=== PATIENT | male | born 1990 | race Caucasian/White ===

== ENCOUNTER 2018-11-13 18:31 | Emergency (ER) | payer OTHER ==
[2018-11-13 18:43] VITALS: BP 127/87; PULSE 99; TEMP 99.8; BMI 26.1
[2018-11-13] MEDS ORDERED: KETOROLAC TROMETHAMINE 60 MG/2 ML VIAL IM ONE (18:59)
[2018-11-13] MEDS ORDERED: DEXAMETHASONE LIQUID 0.5 MG/5 ML 240 ML BULK BOTTLE PO ONE (18:59)
--- NOTE | 2018-11-13 19:04 | PDOC ---
History of Present Illness - General Chief Complaint: Sore Throat Stated Complaint: THROAT PAIN Time Seen by Provider: 11/13/18 18:52 History Source: Patient Exam Limitations: Clinical Condition - History of Present Illness Initial Comments: 11/13/18 19:00 Patient with no significant past medical history present with complaint of five- day history of sore throat, painful to swallow a fever. Denies nausea, vomiting , abdominal pain. Patient denies choking sensation. Patient did not take anything for symptoms. Denies any other symptoms Timing/Duration: other (5 days) Past History - Past Medical History Allergies/Adverse Reactions: Allergies Allergy/AdvReac Type Severity Reaction Status Date / Time No Known Allergies Allergy Verified 11/13/18 18:40 Home Medications: Ambulatory Orders Amox-Tr/K Cl [Augmentin - 875Mg Tablet] 1 tab PO BID #14 tablet 11/13/18 Ibuprofen 800 mg PO Q8H PRN #12 tablet 11/13/18 Asthma: No Cancer: No Cardiac Disorders: No CVA: No COPD: No CHF: No DVT: No - Surgical History Gastric Stapling: No Lung Surgery: No Neurologic Surgery: No - Suicide/Smoking/Psychosocial Hx Smoking History: Never smoked Have you smoked in the past 12 months: No Information on smoking cessation initiated: No Hx Alcohol Use: No Drug/Substance Use Hx: No Review of Systems - Review of Systems Able to Perform ROS?: Yes Is the patient limited Welsh proficient: No Constitutional: Yes: Chills, Fever. No: Malaise, Weakness HEENTM: Yes: Symptoms Reported, See HPI, Throat Pain, Difficulty Swallowing. No : Eye Pain, Blurred Vision, Tearing, Recent change in vision, Double Vision, Cataracts, Ear Pain, Ocular Prothesis, Ear Discharge, Nose Pain, Nose Congestion , Tinnitus, Nose Bleeding, Hearing Loss, Throat Swelling, Mouth Pain, Dental Problems, Mouth Swelling, Other Respiratory: No: Symptoms reported, See HPI, Cough, Orthopnea, Shortness of Breath, SOB with Exertion, SOB at Rest, Stridor, Wheezing, Productive cough, Hemoptysis, Other Cardiac (ROS): No: Symptoms Reported, See HPI, Chest Pain, Edema, Irregular Heart Rate, Lightheadedness, Palpitations, Syncope, Chest Tightness, Other ABD/GI: No: Diarrhea, Nausea, Vomiting Neurological: No: Weakness All Other Systems: Reviewed and Negative *Physical Exam - Vital Signs Last Vital Signs Temp Pulse Resp BP Pulse Ox 99.8 F H 99 H 20 127/87 100 11/13/18 18:40 11/13/18 18:40 11/13/18 18:40 11/13/18 18:40 11/13/18 18:40 - Physical Exam Comments: 11/13/18 19:01 GENERAL: Well developed, well nourished. Awake and alert in mild acute distress. HEENT: Moderate erythematous pharynx with enlarged bilateral erythematous tonsils. Moderate white exudate in bilateral tonsils. Airway patent. No evidence of peritonsillar abscess on exam. Normocephalic, atraumatic. PERRLA, EOMI. No conjunctival pallor. Sclera are non-icteric. Moist mucous membranes. NECK: Supple. Full ROM. CARDIOVASCULAR: Regular rate and rhythm. No murmurs, rubs, or gallops. Distal pulses are 2+ and symmetric. PULMONARY: No evidence of respiratory distress. Lungs clear to auscultation bilaterally. No wheezing, rales or rhonchi. ABDOMINAL: Soft. Non-tender. Non-distended. No rebound or guarding. No organomegaly. Normoactive bowel sounds. SKIN: Warm and dry. Normal capillary refill. No rashes. No jaundice. NEUROLOGICAL: Alert, awake, appropriate. Gait is normal without ataxia. PSYCHIATRIC: Cooperative. Good eye contact. Appropriate mood General Appearance: Yes: Nourished, Appropriately Dressed, Mild Distress Moderate Sedation - Procedure Monitoring Vital Signs: Procedure Monitoring Vital Signs Temperature 99.8 F H 11/13/18 18:40 Pulse Rate 99 H 11/13/18 18:40 Respiratory Rate 20 11/13/18 18:40 Blood Pressure 127/87 11/13/18 18:40 O2 Sat by Pulse Oximetry (%) 100 11/13/18 18:40 Medical Decision Making - Medical Decision Making 11/13/18 19:03 Patient with no significant past medical history present with complaint of five- day history of sore throat and fever with painful to swallow. Exam significant for erythematous pharynx with bilaterally enlarged tonsils. Rapid strep test ordered. Toradol 60 mg IM and Decadron 10 mg by mouth ordered for pharyngeal pain and swelling. 11/13/18 19:15 Rapid strep negative. Patient was to be treated on Augmentin given low sensitivity of rapid strep test and patient with erythematous with ENT follow-up *DC/Admit/Observation/Transfer Diagnosis at time of Disposition: Tonsillitis Pharyngitis Qualifiers: Pharyngitis/tonsillitis etiology: unspecified etiology Qualified Code(s): J02.9 - Acute pharyngitis, unspecified - Discharge Dispostion Disposition: HOME Condition at time of disposition: Stable Decision to Admit order: No - Prescriptions Prescriptions: Amox-Tr/K Cl [Augmentin - 875Mg Tablet] 1 tab PO BID #14 tablet Ibuprofen 800 mg PO Q8H PRN #12 tablet PRN Reason: pain - Referrals Referrals: Wil Del Rio MD [Staff Physician] - - Patient Instructions Printed Discharge Instructions: DI for Pharyngitis/Tonsillopharyngitis -- Adult Additional Instructions: Take medications as prescribed. Increase fluid intake. Follow-up referred ENT - Post Discharge Activity
[2018-11-13] MEDS ORDERED: KETOROLAC TROMETHAMINE 60 MG/2 ML VIAL ONE (19:05)
[2018-11-13] MEDS ORDERED: DEXAMETHASONE SOD PHOSPHATE 10 MG/1 ML VIAL ONE (19:05)
== END 2018-11-13 19:20 | disposition home or self-care (01) ==
LOC: JERFT 18:31
PROC: 3E0233Z Introduction of Anti-inflammatory into Muscle, Percutaneous Approach (ICD-10-PCS; principal; 2018-11-13)
DX: J02.9 Acute pharyngitis, unspecified (principal)
CPT/HCPCS: 87070; 87880; 96372; 99281-25

== ENCOUNTER 2020-09-03 00:23 | Emergency (ER) | payer OTHER ==
[2020-09-03 00:36] VITALS: TEMP 97.9; BMI 29.6
[2020-09-03] MEDS ORDERED: SODIUM CHLORIDE 0.9% 500 ML INFUS.BAG IV ONE (00:49)
[2020-09-03] MEDS ORDERED: FAMOTIDINE 20 MG/50 ML IVPB 20 MG/50 ML MG IVPB ONE ×2 (00:49→00:53)
[2020-09-03] MEDS ORDERED: ONDANSETRON 4 MG/2 ML VIAL IVPUSH ONE (00:49)
[2020-09-03] MEDS ORDERED: DICYCLOMINE HCL 20 MG TABLET PO ONE (00:53)
[2020-09-03] MEDS ORDERED: ONDANSETRON 4 MG/2 ML VIAL ONE (00:53)
[2020-09-03] MEDS ORDERED: DICYCLOMINE HCL 10 MG CAPSULE ONE (01:04)
[2020-09-03 01:11] LABS: BASO % 0.8 % (0-2.0); EOS % 0.2 % (0-4.5); HEMATOCRIT 40.2 % (35.4-49); HEMOGLOBIN 13.2 GM/dL (11.7-16.9); LYMPH % 17.3 % (8-40); MCH 25.2 pg (25.7-33.7); MCHC 32.9 g/dl (32.0-35.9); MEAN CELL VOLUME 76.7 fl (80-96); MEAN PLT VOLUME 8.2 fl (7.5-11.1); MONO % 15.2 % (3.8-10.2); NEUT % 66.5 % (42.8-82.8); PLATELET COUNT 250 K/MM3 (134-434); RBC 5.24 M/mm3 (4.00-5.60); RDW 14.8 % (11.9-15.9); WHITE BLOOD COUNT 7.2 K/mm3 (4.0-10.0)
[2020-09-03 01:30] LABS: POTASSIUM 3.7 mmol/L (3.5-5.1)
[2020-09-03 01:32] LABS: ALBUMIN 3.8 g/dl (3.4-5.0)
[2020-09-03 01:33] LABS: BLOOD UREA NITROGEN 7.3 mg/dL (7-18)
[2020-09-03 01:37] LABS: BILIRUBIN,TOTAL 0.3 mg/dL (0.2-1); TOT PROT 7.8 g/dl (6.4-8.2)
[2020-09-03 01:58] LABS: ANISOCYTOSIS 0; MACROCYTOSIS 0; PLATELET ESTIMATE NORMAL
[2020-09-03 02:43] VITALS: BP 126/83; PULSE 85
== END 2020-09-03 02:43 | disposition home or self-care (01) ==
LOC: JER 00:23
PROC: 3E033GC Introduction of Other Therapeutic Substance into Peripheral Vein, Percutaneous Approach (ICD-10-PCS; principal; 2020-09-03)
PROC: 3E033GC Introduction of Other Therapeutic Substance into Peripheral Vein, Percutaneous Approach (ICD-10-PCS; 2020-09-03)
DX: A05.1 Botulism food poisoning (principal)
CPT/HCPCS: 36415; 80053; 80074; 83690; 85025; 99284-25